=== PATIENT | female | born 1970 | race Caucasian/White ===

== ENCOUNTER 2019-06-13 10:32 | Emergency (ER) | payer OTHER ==
[~2019-06-13] VITALS: Ht 154.9 cm; Wt 69.1 kg
[2019-06-13 10:41] VITALS: Ht 154.9 cm; Wt 69.1 kg
[2019-06-13 15:07] VITALS: BP 142/81
== END 2019-06-13 15:07 | disposition home or self-care (01) ==
LOC: ED 10:32
DX: R10.9 Unspecified abdominal pain (principal); M54.5 Low back pain; I10 Essential (primary) hypertension; E11.9 Type 2 diabetes mellitus without complications
CPT/HCPCS: J1885